=== PATIENT | female | born 1945 | race Caucasian/White ===

== ENCOUNTER 2022-08-07 22:06 | Emergency (ER) | payer OTHER, SELFPAY ==
[2022-08-07 22:13] VITALS: BP 126/68; PULSE 85; RESP 16; TEMP 36.2; O2SAT 96
--- NOTE | 2022-08-07 22:42 | ED.GENADULT ---
HPI - General Adult General Time Seen by Provider: 22:42 Date Seen: 08/07/22 Chief complaint: Unspecified Complaint, Adult Stated complaint: Dizziness, weakness Time Seen by Provider: 08/07/22 22:42 Source: patient, EMS and RN notes reviewed Mode of arrival: EMS Limitations: no limitations History of Present Illness HPI narrative: Vanessa is a 76-year-old female here with her [id number] with concern of dizziness, lightheadedness and spinning sensation. Since about 6:00 a.m. dilan she noted she was feeling dizzy and lightheaded. She went to get up to the bathroom at 1 point and felt like she could not sit up. She felt like she could get her head off the bed but not set up further than that. She describes all 3 symptoms. She is feeling better now. She notes that she has had a couple of nosebleeds over the last month. One was last week. She states the only way she could get it to stop was put a cold washcloth behind her neck. She also relays to me that she has completed physical therapy for her knees and is going to physical therapy for her shoulders. She may have injured her rotator cuffs and she is working on physical therapy for that. When this was happening this evening she felt some chest pressure but not a sharp pain like 1 would have with heart attack per her report. She also felt like somebody was pressing on her abdomen. She notes she had a headache last week. She has had symptoms like this before with lightheadedness and dizziness. When ask her if she is worried about anything, she talks about 2 of her sons. One has some health issues and is not exercising and is getting depressed about that. She also notes 1 is in [place]. Related Data Home Medications Medication Instructions Recorded Confirmed atorvastatin 40 mg tablet mg 08/07/22 levothyroxine 50 mcg tablet mcg 08/07/22 Allergies Allergy/AdvReac Type Severity Reaction Status Date / Time No Known Drug Allergies Allergy Verified 08/07/22 22:18 Review of Systems Status of ROS: Reports: 10 or more systems reviewed and unremarkable except as noted in History and below Exam Const: Vital Signs, click to edit/add: Vital Signs - 24 hr 08/07/22 22:13 08/07/22 23:52 08/08/22 00:00 Temperature 97.2 F L Pulse Rate 84 84 Pulse Rate [Left P ulse Oximeter] 85 Respiratory Rate 16 Blood Pressure Blood Pressure [Ri ght Upper Arm] 126/68 Pulse Oximetry 96 95 94 Oxygen Delivery Me thod Room Air 08/08/22 00:02 Temperature Pulse Rate 82 Pulse Rate [Left P ulse Oximeter] Respiratory Rate Blood Pressure 147/76 H Blood Pressure [Ri ght Upper Arm] Pulse Oximetry 95 Oxygen Delivery Me thod Documenting provider has reviewed patient's vital signs: yes Common normals: no apparent distress, oriented x3, no limitations, healthy appearing, alert and well nourished General appearance: cooperative, comfortable, well kempt and well developed Nutritional appearance: overweight HENMT: Common normals: normocephalic, head/scalp atraumatic and external ears normal Head and scalp: normocephalic and atraumatic External ear: external ears normal Eye: Common normals: PERRL, EOMs intact bilaterally, conjunctivae normal, no scleral icterus and normal visual schofield by confrontation Conjunctiva: conjunctiva(e) normal Pupil: PERRL Other: I cannot exhibit any nystagmus nor cause her to have any symptomatology with movement of her eyes or turning her head. Neck & C-Spine: Common normals: full ROM, no lymphadenopathy, supple, no meningeal signs, no JVD and thyroid normal Thyroid: thyroid normal Chest: Common normals: inspection of chest normal and palpation of chest normal Resp: Common normals: normal respiratory effort, no retractions, no use of accessory muscles and clear to auscultation bilaterally Auscultation: clear to auscultation bilaterally Cardio: Common normals: no JVD, regular rate, regular rhythm, S1 normal heart sound, S2 normal heart sound, no gallops and no murmurs Rate: regular rate Rhythm: regular rhythm Heart sounds: S1 normal and S2 normal GI: Common normals: Normal to inspection, nondistended, normoactive bowel sounds present, soft to palpation, non-tender, no hepatosplenomegaly and no masses Palpation: soft and no hepatosplenomegaly Extremity: Common normals: no calf tenderness and no pedal edema Neuro: Bianca Coma Scale: document GCS findings [place] coma scale eye opening: Spontaneous (4) [place] coma scale verbal response: Orientated (5) Bianca coma scale motor response: Obey commands (6) Bianca coma scale total score: 15 Common normals: oriented x3, CN's II-XII intact bilaterally, moves all extremities, no focal motor deficits and no sensory deficits noted Sensorium/orientation: alert Meningeal signs: no meningeal signs Speech: speech normal Psych: Appearance: well kempt Course Course Hospital Course: Patient has a conglomeration of symptoms. The spinning certainly could be vertigo but has resolved. She also had this in conjunction with lightheadedness and dizziness. She also complained of some chest pressure and abdominal pressure with this. We will have her on cardiac monitoring and pulse oximetry. She has not been given any medicines from EMS to franck any of her symptoms. Will proceed with full complement of labs. I will do portable chest x-ray, noncontrast head CT. It is difficult to tile the symptomatology together with 1 true dual diagnosis. Will see what we get on the ordered imaging and the lab results and see if we need to do any further investigating. Reevaluation(s) Reevaluation #1: Nursing staff reported to me that patient just walk to the bathroom and on was back to baseline, no dizziness, no spinning, no lightheadedness. Time: 23:53 Reevaluation #2: Have reviewed with patient and relative that the workup is negative. She is feeling better. We did discuss vertigo. They feel comfortable going home. They are going to have her sleep on the main level and not have her go down stairs where her bedroom is. Time: 00:44 Vital Signs Vital signs: Initial Vital Signs Temperature 97.2 F L 08/07/22 22:13 Temperature Source Temporal Artery Scan 08/07/22 22:13 Pulse Rate 85 08/07/22 22:13 Pulse Rhythm 08/07/22 22:13 Respiratory Rate 16 08/07/22 22:13 Blood Pressure 126/68 08/07/22 22:13 Blood Pressure Mean 87 08/07/22 22:13 Blood Pressure Position Semi-Fowlers 08/07/22 22:13 Pulse Oximetry 96 08/07/22 22:13 Oxygen Delivery Method 08/07/22 22:13 Vital Signs Temperature 97.2 F L 08/07/22 22:13 Pulse Rate 85 08/07/22 22:13 Respiratory Rate 16 08/07/22 22:13 Blood Pressure 126/68 08/07/22 22:13 Pulse Oximetry 96 08/07/22 22:13 Oxygen Delivery Method 08/07/22 22:13 Temperature 97.2 F L 08/07/22 22:13 Pulse Rate 82 08/08/22 00:02 Respiratory Rate 16 08/07/22 22:13 Blood Pressure 147/76 H 08/08/22 00:02 Pulse Oximetry 95 08/08/22 00:02 Oxygen Delivery Method 08/07/22 22:13 Medical Decision Making Medical Records Medical records reviewed: Yes I reviewed the patient's medical records Medical records narrative: OBSTETRIC AND GYNECOLOGIC HISTORY: Para 4, with 4 vaginal deliveries No menses since total abdominal hysterectomy in 1987 No history of abnormal Pap No history of STI She is not sexually active PAST MEDICAL HISTORY: History of glaucoma History of cataracts Hypothyroidism High cholesterol PAST SURGICAL HISTORY: Tonsillectomy in 1955 Total abdominal hysterectomy, ovary spared, 1987 Glaucoma surgery 2007 Rectocele repair with either cystocele repair or bladder sling in 2008 Excision of cyst on right foot in 2011 Colonoscopy 2012, 2018 Right bunionectomy 2015 Left bunionectomy 2016 Bilateral ocular implants in 2017 Laparoscopic right hemicolectomy with Dr. Moscoso 2018 FAMILY HISTORY: Father with heart disease, stroke, hypertension, high cholesterol SOCIAL HISTORY: She is retired She has a high school education She exercises by doing water aerobics twice a week She does not smoke She does not drink alcohol She does not use recreational drugs Lab Data Lab results reviewed: Yes I reviewed the patient's lab results Labs: Lab Results 08/07/22 08/07/22 08/07/22 Range/Units 22:53 23:15 23:15 WBC 10.23 (4.50-11.00) K/uL RBC 4.69 (4.00-5.20) m/uL Hgb 14.3 (12.0-16.0) gm/dL Hct 43.6 (33.0-51.0) % MCV 93 (80-100) fL MCH 31 (26-34) pg MCHC 33 (32-36) gm/dL RDW Coeff of Isidro 12.6 (11.5-15.5) % Plt Count 294 (140-440) K/uL Neut % (Auto) 76.1 H (42.0-72.0) % Lymph % (Auto) 12.1 L (20-44) % Grady % (Auto) 10.8 (0.0-11.0) % Eos % (Auto) 0.6 (0.0-7.0) % Baso % (Auto) 0.3 (0.0-3.0) % Neut # (Auto) 7.80 H (1.7-7.0) K/uL Lymph # (Auto) 1.20 (0.90-2.90) K/uL Grady # (Auto) 1.10 H (0.00-0.90) K/UL Eos # (Auto) 0.06 (0.00-0.50) K/uL Baso # (Auto) 0.03 (0.00-0.30) K/uL Sodium 139 (135-149) mmol/L Potassium 4.3 (3.6-5.1) mmol/L Chloride 108 (96-114) mmol/L Carbon Dioxide 27 (20-32) mmol/L BUN 32 H (7-30) mg/dL Creatinine 0.9 (0.5-1.5) mg/dL Estimated GFR 65 ml/min Glucose 128 H (60-115) mg/dL Lactate (0.5-1.9) mmol/L Calcium 9.1 (8.4-10.6) mg/dL Magnesium 2.0 (1.5-2.6) mg/dL Total Bilirubin 1.0 (0.1-1.5) mg/dL AST 23 (12-35) U/L ALT 22 (4-35) U/L Alkaline Phosphatase 59 (40-150) U/L NT-Pro-B Natriuret Pep 98 pg/mL Total Protein 7.6 (6.0-8.3) g/dL Albumin 4.1 (3.3-5.0) g/dL SARS-CoV-2 (PCR) (Negative) Influenza Type A (PCR) (Negative) Influenza Type B (PCR) (Negative) RSV (PCR) (Negative) POC Troponin I 0.00 L (0.01-0.04) ng/ml 08/07/22 08/07/22 Range/Units 23:15 23:15 WBC (4.50-11.00) K/uL RBC (4.00-5.20) m/uL Hgb (12.0-16.0) gm/dL Hct (33.0-51.0) % MCV (80-100) fL MCH (26-34) pg MCHC (32-36) gm/dL RDW Coeff of Isidro (11.5-15.5) % Plt Count (140-440) K/uL Neut % (Auto) (42.0-72.0) % Lymph % (Auto) (20-44) % Grady % (Auto) (0.0-11.0) % Eos % (Auto) (0.0-7.0) % Baso % (Auto) (0.0-3.0) % Neut # (Auto) (1.7-7.0) K/uL Lymph # (Auto) (0.90-2.90) K/uL Grady # (Auto) (0.00-0.90) K/UL Eos # (Auto) (0.00-0.50) K/uL Baso # (Auto) (0.00-0.30) K/uL Sodium (135-149) mmol/L Potassium (3.6-5.1) mmol/L Chloride (96-114) mmol/L Carbon Dioxide (20-32) mmol/L BUN (7-30) mg/dL Creatinine (0.5-1.5) mg/dL Estimated GFR ml/min Glucose (60-115) mg/dL Lactate 1.5 (0.5-1.9) mmol/L Calcium (8.4-10.6) mg/dL Magnesium (1.5-2.6) mg/dL Total Bilirubin (0.1-1.5) mg/dL AST (12-35) U/L ALT (4-35) U/L Alkaline Phosphatase (40-150) U/L NT-Pro-B Natriuret Pep pg/mL Total Protein (6.0-8.3) g/dL Albumin (3.3-5.0) g/dL SARS-CoV-2 (PCR) Negative SARS-CoV-2 (Negative) Influenza Type A (PCR) Negative PCR FLU A (Negative) Influenza Type B (PCR) Negative PCR FLU B (Negative) RSV (PCR) Negative PCR RSV (Negative) POC Troponin I (0.01-0.04) ng/ml Imaging Data Chest x-ray: Attestation: I have reviewed the pertinent imaging results. My impression: I do not appreciate any acute pathology of her portable chest x-ray my preliminary review. Radiologist's impression: Patient: VANESSA TERAN COURTENAY Facility:?[facility] Patient ID:?[id number] Site Patient ID:?[id number]. Site :?[id number] Study:?XRay Chest -08/07/2022 11:32:43 PM Ordering Physician:Travis Lee Final Report: Indication: Chest pressure Technique: Chest 1 view Comparison: None Findings/Impression: Cardiovascular and mediastinum: Heart size and vasculature are normal in caliber and appearance. Mediastinum is within normal limits. Lungs and pleural space: Lungs are clear. No sign of infiltrate or mass. No sign of pleural effusion. No pneumothorax. Bones and soft tissues: No significant findings. Dictated by Fransisca Roberson MD @ 08/08/2022 12:04:24 AM (Electronic Signature) CT scan - head: Attestation: I have reviewed the pertinent imaging results. Radiologist's impression: Patient: [facility] Facility:?[facility] Patient ID:?[id number] Site Patient ID:?[id number]. Site :?[id number] Study:?CT Head -08/07/2022 11:36:49 PM Ordering Physician:?Walter Lee Final Report: INDICATION: Dizziness. TECHNIQUE: CT Head without contrast. COMPARISON: None. FINDINGS: CSF spaces: Within normal limits for age. Brain parenchyma: The matthews-white differentiation is normal. No sign of mass, hemorrhage, or midline shift. Skull base and calvarium: Minor mucosal thickening retained mucus in the right maxillary sinus. Mastoid air cells are clear. The visualized orbits are grossly unremarkable. No skull fractures. . IMPRESSION: Unremarkable noncontrast head CT. Please note that all CT scans at this facility use dose modulation, iterative reconstruction, and/or weight-based dosing when appropriate to reduce radiation dose to as low as reasonably achievable. Dictated by Dionte Hylton MD @ 08/08/2022 12:19:12 AM (Electronic Signature) ECG Data Attestation: I personally reviewed and interpreted this ECG as follows: (Sinus rhythm, 80 beats per minute. Nonspecific T-wave changes. QT corrected 410 milliseconds. This is my review this EKG.) Prior ECG tracings: not available for review Critical Care Time Critical Care Time Critical Care Time: No Discharge Plan Discharge Clinical Impression: Dizziness Patient Disposition: Home, Self-Care Condition: Stable Instructions: Vertigo (ED), Lightheadedness (ED), Dizziness (ED) Additional Instructions: If you have return of symptoms or have new concerns, please seek re-evaluation. Otherwise, recommend follow-up with your primary care provider with in the next week. If you have brief limited episodes of spinning, this could be peripheral vertigo. Activity Level: Activity as Tolerated Prescriptions: No Action atorvastatin 40 mg tablet Label Comments: TAKE 1 TABLET BY MOUTH AT BEDTIME levothyroxine 50 mcg tablet Stand Alone Forms: ROKTth Info Instructions
--- NOTE | 2022-08-07 22:52 | CRLHL7_ITS ---
For Patients: As a result of the Century Cures Act, medical imaging exams and procedure reports are released immediately into your electronic medical record. You may view this report before your referring provider. If you have questions, please contact your health care provider. INDICATION: Dizziness. TECHNIQUE: CT Head without contrast. COMPARISON: None. FINDINGS: CSF spaces: Within normal limits for age. Brain parenchyma: The matthews-white differentiation is normal. No sign of mass, hemorrhage, or midline shift. Skull base and calvarium: Minor mucosal thickening retained mucus in the right maxillary sinus. Mastoid air cells are clear. The visualized orbits are grossly unremarkable. No skull fractures. . IMPRESSION: Unremarkable noncontrast head CT. Please note that all CT scans at this facility use dose modulation, iterative reconstruction, and/or weight-based dosing when appropriate to reduce radiation dose to as low as reasonably achievable. Dictated by Dionte Hylton MD @ 08/08/2022 12:19:12 AM (Electronically Signed)
--- NOTE | 2022-08-07 22:52 | CRLHL7_ITS ---
For Patients: As a result of the Century Cures Act, medical imaging exams and procedure reports are released immediately into your electronic medical record. You may view this report before your referring provider. If you have questions, please contact your health care provider. Indication: Chest pressure Technique: Chest 1 view Comparison: None Findings/Impression: Cardiovascular and mediastinum: Heart size and vasculature are normal in caliber and appearance. Mediastinum is within normal limits. Lungs and pleural space: Lungs are clear. No sign of infiltrate or mass. No sign of pleural effusion. No pneumothorax. Bones and soft tissues: No significant findings. Dictated by Fransisca Roberson MD @ 08/08/2022 12:04:24 AM (Electronically Signed)
[2022-08-07 23:18] LABS: Lactate* 1.5 mmol/L (0.5-1.9)
[2022-08-07 23:21] LABS: Basophils Absolute Auto 0.03 K/uL (0.00-0.30); Basophils Percent Auto 0.3 % (0.0-3.0); Eosinophils Absolute Auto 0.06 K/uL (0.00-0.50); Eosinophils Percent Auto 0.6 % (0.0-7.0); Hematocrit 43.6 % (33.0-51.0); Hemoglobin* 14.3 gm/dL (12.0-16.0); Immature Granulocytes Abs Auto 0.01 K/uL (0.00-0.30); Immature Granulocytes Pct Auto 0.1 %; Lymphocytes Percent Auto 12.1 % (20-44); Mean Corpuscular HGB Conc 33 gm/dL (32-36); Mean Corpuscular Hemoglobin 31 pg (26-34); Mean Corpuscular Volume 93 fL (80-100); Monocytes Percent Auto 10.8 % (0.0-11.0); Neutrophils Percent Auto 76.1 % (42.0-72.0); Platelet Count* 294 K/uL (140-440); RDW Coefficient of Variation % 12.6 % (11.5-15.5); Red Blood Count 4.69 m/uL (4.00-5.20); White Blood Count* 10.23 K/uL (4.50-11.00)
[2022-08-07 23:26] LABS: Slide Review Reflex No
[2022-08-07 23:35] LABS: Albumin* 4.1 g/dL (3.3-5.0); Chloride* 108 mmol/L (96-114); Sodium* 139 mmol/L (135-149)
[2022-08-07 23:37] LABS: Creatinine* 0.9 mg/dL (0.5-1.5); Estimated Glomerular Filt Rate 65 ml/min
[2022-08-07 23:38] LABS: Alanine Aminotransferase* 22 U/L (4-35); Alkaline Phosphatase* 59 U/L (40-150); Blood Urea Nitrogen* 32 mg/dL (7-30); Calcium* 9.1 mg/dL (8.4-10.6); Carbon Dioxide* 27 mmol/L (20-32); Glucose* 128 mg/dL (60-115); Total Protein* 7.6 g/dL (6.0-8.3)
[2022-08-07 23:48] LABS: NT Pro B Type NatriureticPept* 98 pg/mL
[2022-08-07 23:52] VITALS: PULSE 84; O2SAT 95
[2022-08-08] VITALS (8 sets, daily range): BP systolic 141–147; BP diastolic 69–76; PULSE 79–84; O2SAT 94–97
[2022-08-08 00:04] LABS: PCR FLU A Negative PCR FLU A (Negative); PCR FLU B Negative PCR FLU B (Negative); PCR RSV Negative PCR RSV (Negative); SARS PCR* Negative SARS-CoV-2 (Negative)
[2022-08-08 00:16] LABS: Aspartate Amino Transferase* 23 U/L (12-35); Potassium* 4.3 mmol/L (3.6-5.1)
== END 2022-08-08 01:04 | disposition home or self-care (01) ==
PROVIDERS: Emergency Provider Family Medicine; PCP Family Medicine
DX: R42 Dizziness and giddiness (principal)
CPT/HCPCS: 36415; 70450; 71045; 80053; 83605; 83735; 83880; 84484; 85025; 87502; 87634; 87635; 93005; 94761; 99284; 99285

== ENCOUNTER 2023-01-15 08:14 | Emergency (ER) | payer OTHER, SELFPAY ==
[2023-01-15 08:19] VITALS: BP 153/82; PULSE 76; RESP 16; TEMP 36.8; O2SAT 97; BMI 35.2
--- NOTE | 2023-01-15 08:44 | CRLHL7_ITS ---
For Patients: As a result of the Century Cures Act, medical imaging exams and procedure reports are released immediately into your electronic medical record. You may view this report before your referring provider. If you have questions, please contact your health care provider. INDICATION: Lightheadedness. TECHNIQUE: Two-view chest. COMPARISON: PA chest August 07, 2022. FINDINGS: Clear lungs. Normal heart size and pulmonary vascularity. Thoracolumbar scoliosis. IMPRESSION: No acute cardiopulmonary process identified. No significant change other than technique. Dictated by Emmanuel Tyler MD @ 01/15/2023 9:05:05 AM (Electronically Signed)
--- NOTE | 2023-01-15 08:45 | ED.GENADULT ---
HPI - General Adult General Time Seen by Provider: 08:45 Date Seen: 01/15/23 Chief complaint: Hypertension Stated complaint: elevated bp, pulse,dizziness Time Seen by Provider: 01/15/23 08:17 Source: patient Mode of arrival: ambulatory Limitations: no limitations History of Present Illness HPI narrative: Patient is a 77-year-old female with a history of hypertension, hyperlipidemia and hypothyroidism presenting to the emergency department for lightheadedness/dizziness and hypertension. Patient states last night she was feeling very lightheaded and dizzy. She states there episodes when she felt like she was going to pass out. She denies ever losing consciousness or falling. She was also having some shortness of breath and chest pressure. She states the shortness of breath and chest pressure have resolved but she is still isn't feeling back to normal this morning. She still having some lightheadedness and dizziness. Patient states she is not feeling dizzy while laying in the hospital bed at this time but she does feel fatigued. She admits to intermittent abdominal pain, headache and vision changes but states most of these are chronic issues and not any different from her baseline. Denies dysuria, diarrhea, constipation, numbness. Patient does state she chronically has issues with dizziness and lightheadedness but states he has passed a days has been worse. She admits she does not drink enough water. She also states she has noted blood pressures been higher than average with at home it was 160/80 Related Data Home Medications Medication Instructions Recorded Confirmed atorvastatin 40 mg tablet 40 mg 08/07/22 levothyroxine 50 mcg tablet 50 mcg 08/07/22 Allergies Allergy/AdvReac Type Severity Reaction Status Date / Time No Known Drug Allergies Allergy Verified 08/07/22 22:18 Review of Systems Status of ROS: Reports: 10 or more systems reviewed and unremarkable except as noted in History and below PFSH PFSH Social History Smoking Status: Never smoker Do you use any of these nicotine containing products: None Second hand tobacco smoke exposure: No How often do you have a drink containing alcohol: monthly or less How many standard drinks containing alcohol do you have on a typical day: 1 or 2 How often do you have six or more drinks on one occasion: Never AUDIT-C Alcohol total score: 1 Non-prescribed substance use: denies use Exam Narrative: Exam Narrative: Const: Well-nourished, Well-developed, in mild distress Eyes: PERRL, no conjunctival injection, and symmetrical lids ENMT: Atraumatic external nose and ears. Moist mucous membranes. Neck: Symmetric, trachea midline, No thyromegaly. CVS: RRR, No murmurs or gallops. Peripheral pulses 2+ and equal in all extremities RESP: Unlabored respiratory effort. Clear to auscultation bilaterally. GI: Nontender/Nondistended, No rebound or guarding. MSK:Extremities w/o deformity, Normal Active ROM Skin: Warm, Dry. No rashes or lesions. Neuro: Normal Muscle tone, No focal neurological deficits. Psych: Awake, Alert, & Oriented x3. Appropriate mood and affect. Const: Vital Signs, click to edit/add: Vital Signs - 24 hr 01/15/23 08:19 01/15/23 10:40 Temperature 98.2 F Pulse Rate [Right Pulse Oximeter] 76 62 Respiratory Rate 16 14 Blood Pressure [Ri ght Forearm] 153/82 H 175/71 H Pulse Oximetry 97 97 Oxygen Delivery Me thod Room Air Room Air Course Vital Signs Vital signs: Initial Vital Signs Temperature 98.2 F 01/15/23 08:19 Temperature Source Temporal Artery Scan 01/15/23 08:19 Pulse Rate 76 01/15/23 08:19 Respiratory Rate 16 01/15/23 08:19 Blood Pressure 153/82 H 01/15/23 08:19 Blood Pressure Mean 105 01/15/23 08:19 Blood Pressure Position Sitting 01/15/23 08:19 Pulse Oximetry 97 01/15/23 08:19 Oxygen Delivery Method Room Air 01/15/23 08:19 Vital Signs Temperature 98.2 F 01/15/23 08:19 Pulse Rate 76 01/15/23 08:19 Respiratory Rate 16 01/15/23 08:19 Blood Pressure 153/82 H 01/15/23 08:19 Pulse Oximetry 97 01/15/23 08:19 Oxygen Delivery Method Room Air 01/15/23 08:19 Temperature 98.2 F 01/15/23 08:19 Pulse Rate 62 01/15/23 10:40 Respiratory Rate 14 01/15/23 10:40 Blood Pressure 175/71 H 01/15/23 10:40 Pulse Oximetry 97 01/15/23 10:40 Oxygen Delivery Method Room Air 01/15/23 10:40 Medical Decision Making MDM Narrative Medical decision making narrative: Patient is a 77-year-old female presenting emergency department for fatigue. She was having chest pressure and shortness of breath yesterday that has since resolved. She was having some dizziness lightheadedness also there is also resolved. Today she just feels fatigued. She states that has this dizziness is a chronic issue that was worse over the past couple days. She admits to not drinking enough fluids. She has never seen a project manager process development. With any symptoms we will do a cardiac workup to include CBC, CMP, troponin, urinalysis, chest x-ray, EKG. She was given a L of normal saline and New line patient's EKG showed no concerning abnormalities at this time. Chest x-ray does not show any concerning abnormalities either. Patient's lab results and normal limits be we did give her a L of fluids. She was able walk to the bathroom without issue. She states she still feels tired. But her vital signs are stable and she looks to be doing otherwise well. Unlikely to be cardiac in nature with a normal troponin since the symptoms started a couple days ago with the chest pressure starting yesterday. I would expected this to be elevated. I spoke to the patient upon the primary care provider and told her that she should eventually see a project manager process development. They are agreeable with this plan Differential Diagnosis Differential Diagnosis: ACS, electrolyte abnormality, viral syndrome, UTI Lab Data Labs: Lab Results 01/15/23 01/15/23 Range/Units 09:00 09:13 WBC 6.01 (4.50-11.00) K/uL RBC 5.13 (4.00-5.20) m/uL Hgb 15.1 (12.0-16.0) gm/dL Hct 47.4 (33.0-51.0) % MCV 92 (80-100) fL MCH 29 (26-34) pg MCHC 32 (32-36) gm/dL RDW Coeff of Isidro 12.9 (11.5-15.5) % Plt Count 296 (140-440) K/uL Neut % (Auto) 55.5 (42.0-72.0) % Lymph % (Auto) 29.0 (20-44) % Ford % (Auto) 13.3 H (0.0-11.0) % Eos % (Auto) 1.5 (0.0-7.0) % Baso % (Auto) 0.7 (0.0-3.0) % Neut # (Auto) 3.34 (1.7-7.0) K/uL Lymph # (Auto) 1.74 (0.90-2.90) K/uL Ford # (Auto) 0.80 (0.00-0.90) K/UL Eos # (Auto) 0.09 (0.00-0.50) K/uL Baso # (Auto) 0.04 (0.00-0.30) K/uL Abs Immat Gran (auto) 0.00 (0.00-0.30) K/uL Imm/Tot Granulo (auto) 0.0 % Sodium 140 (135-149) mmol/L Potassium 3.9 (3.6-5.1) mmol/L Chloride 103 (96-114) mmol/L Carbon Dioxide 28 (20-32) mmol/L BUN 29 (7-30) mg/dL Creatinine 0.9 (0.5-1.5) mg/dL Estimated Creat Clear 32.77 Estimated GFR 65 ml/min Glucose 99 (60-115) mg/dL Calcium 9.6 (8.4-10.6) mg/dL Total Bilirubin 0.5 (0.1-1.5) mg/dL AST 24 (12-35) U/L ALT 19 (4-35) U/L Alkaline Phosphatase 66 (40-150) U/L Troponin I < 0.01 L (0.01-0.04) ng/mL Total Protein 7.9 (6.0-8.3) g/dL Albumin 4.4 (3.3-5.0) g/dL Urine Color Yellow (Yellow) Urine Appearance Clear (Clear) Urine pH 6.5 (5.0-8.5) Ur Specific [place] 1.010 (1.000-1.030) Urine Protein Negative (Negative) Urine Glucose (UA) Negative (Negative) Urine Ketones Negative (Negative) Urine Blood Negative (Negative) Urine Nitrite Negative (Negative) Urine Bilirubin Negative (Negative) Urine Urobilinogen 0.2 (0.2-1.0) Ur Leukocyte Esterase 1+ A (Negative) Urine RBC 0-2 (0-2) Urine WBC 10-25 A (0-5) Ur Squamous Epith Cells Few (None-Few) Urine Bacteria None (None) ECG Data Attestation: I personally reviewed and interpreted this ECG as follows: (Normal sinus rhythm, normal intervals, normal axis, no ST abnormalities. There are T-wave inversions in lead 3 seen on previous EKG in August of this year) Prior ECG tracings: available for review Discharge Plan Discharge Clinical Impression: Fatigue Qualifiers: Fatigue type: unspecified Qualified Code(s): R53.83 - Other fatigue Patient Disposition: Home, Self-Care Condition: Stable Instructions: Fatigue (ED) Additional Instructions: Follow-up with the primary care provider. Speak to your primary care provider about being referred to a smoke and flame specialist. Return to the emergency department for new or worsening symptoms. Your blood pressure is slightly elevated this time but this is not a concern at this time but do recommend you speak to your primary care provider of bowel if they want to further optimize your medication. Prescriptions: No Action atorvastatin 40 mg tablet 40 mg Patient Comments: TAKE 1 TABLET BY MOUTH AT BEDTIME levothyroxine 50 mcg tablet 50 mcg Follow Up/Referrals: Molina Guerrero MD [Primary Care Provider] - Stand Alone Forms: [facility] Info Instructions
[2023-01-15] MEDS: LACTATED RINGERS 1000 ML IV (08:50)
[2023-01-15 09:12] LABS: Basophils Absolute Auto 0.04 K/uL (0.00-0.30); Basophils Percent Auto 0.7 % (0.0-3.0); Eosinophils Absolute Auto 0.09 K/uL (0.00-0.50); Eosinophils Percent Auto 1.5 % (0.0-7.0); Hematocrit 47.4 % (33.0-51.0); Hemoglobin* 15.1 gm/dL (12.0-16.0); Lymphocytes Absolute Auto 1.74 K/uL (0.90-2.90); Mean Corpuscular HGB Conc 32 gm/dL (32-36); Mean Corpuscular Hemoglobin 29 pg (26-34); Mean Corpuscular Volume 92 fL (80-100); Monocytes Percent Auto 13.3 % (0.0-11.0); Neutrophils Absolute Auto 3.34 K/uL (1.7-7.0); Neutrophils Percent Auto 55.5 % (42.0-72.0); Platelet Count* 296 K/uL (140-440); RDW Coefficient of Variation % 12.9 % (11.5-15.5); Red Blood Count 5.13 m/uL (4.00-5.20); White Blood Count* 6.01 K/uL (4.50-11.00)
[2023-01-15 09:16] LABS: Slide Review Reflex No
[2023-01-15 09:28] LABS: Albumin* 4.4 g/dL (3.3-5.0); Chloride* 103 mmol/L (96-114); Sodium* 140 mmol/L (135-149)
[2023-01-15 09:29] LABS: Potassium* 3.9 mmol/L (3.6-5.1)
[2023-01-15 09:31] LABS: Alanine Aminotransferase* 19 U/L (4-35); Alkaline Phosphatase* 66 U/L (40-150); Aspartate Amino Transferase* 24 U/L (12-35); Bilirubin Total* 0.5 mg/dL (0.1-1.5); Blood Urea Nitrogen* 29 mg/dL (7-30); Carbon Dioxide* 28 mmol/L (20-32); Creatinine* 0.9 mg/dL (0.5-1.5); Est. Creatinine Clearance* 32.77; Estimated Glomerular Filt Rate 65 ml/min; Glucose* 99 mg/dL (60-115); Total Protein* 7.9 g/dL (6.0-8.3)
[2023-01-15 09:32] LABS: Calcium* 9.6 mg/dL (8.4-10.6)
[2023-01-15 09:37] LABS: Appearance Urine Clear (Clear); Bilirubin Urine Negative (Negative); Blood Urine Negative (Negative); Color Urine Yellow (Yellow); Glucose Urine Negative (Negative); Ketones Urine Negative (Negative); Protein Urine Negative (Negative); Urobilinogen Urine 0.2 (0.2-1.0); pH Urine 6.5 (5.0-8.5)
[2023-01-15 09:38] LABS: Leukocyte Esterase Urine 1+ (Negative); Nitrite Urine Negative (Negative); RBC Urine 0-2 (0-2); Squamous Epithelial Cell Urine Few (None-Few)
[2023-01-15 09:43] LABS: Troponin I* < 0.01 ng/mL (0.01-0.04)
[2023-01-15 10:40] VITALS: BP 175/71; PULSE 62; RESP 14; O2SAT 97
== END 2023-01-15 10:56 | disposition home or self-care (01) ==
PROVIDERS: Emergency Provider Student in an Organized Health Care Education/Training Program; PCP Family Medicine
DX: R53.83 Other fatigue (principal)
CPT/HCPCS: 36415; 71046; 80053; 81001; 84484; 85025; 87086; 93005; 99283; 99284; 99285; J7120

== ENCOUNTER 2024-01-29 14:20 | Emergency (ER) | payer OTHER, SELFPAY ==
[2024-01-29 14:24] VITALS: BP 133/76; PULSE 83; RESP 18; TEMP 36.2; O2SAT 96; BMI 35.0
--- NOTE | 2024-01-29 14:46 | ED.GENADULT ---
HPI - General Adult General Chief complaint: Headache/Migraine Stated complaint: headaches, fall a month ago Time Seen by Provider: 01/29/24 14:45 History of Present Illness HPI narrative: 78-year-old female presents to the ER today for headaches. She had a fall down 12 stairs that occurred about a month ago on December 27. She was seen in the [facility] ER and had a workup that was normal. A after that fall, she was told come back to the ER to be rechecked of her headaches worsened. Over the past few days her headaches have changed. They are worse and now have gone from feeling told to feeling sharp. No visual disturbance. No focal weakness or numbness. Were able to get some records from the [facility] ER. According to that record she has a history of hypothyroidism, and high cholesterol. She had lost her balance and fallen down 12-15 steps. Temperature was 36.8?. Blood pressure was 167/89. Pulse 88. O2 94% room air. Workup in the ER included : CT head-no evidence of acute intracranial abnormality. Scalp hematoma at the vertex. No underlying skull fracture. CT C-spine. No acute fracture. CT abdomen/pelvis with IV contrast. No acute traumatic solid visceral or major vascular injury within the chest abdomen pelvis. No acute fractures or traumatic listhesis within the thoracic or lumbar spine. Chronic appearing mild fracture deformity of the right inferior pubic ramus. Cholelithiasis with minimal intrahepatic biliary ductal dilatation. No significant surrounding inflammatory changes on CT. Consider ultrasound if clinically relevant. CT report alludes to other non emergent findings . Full report is not available so these non emergent findings are not available to Dr. Beatty today in the [facility] ER Patient reports that she also had multiple areas of bruising from her fall including or abdomen, her back, her lower extremities, her left hand, and her eye. Her bruises of all been healing and she has generally been doing well. She has had minimal to no headaches for the past couple of weeks. However on Saturday she went to the [facility] clinic and had a CT scan of her skull (in preparation for a cochlear implant surgery) after he got home from the clinic she was at home and checking her computer when she had a fairly abrupt and fairly severe headache. She describes it as ?sharp? but does not mean that it was stabbing or pin like but rather that it was much more intense than usual headaches. She took Tylenol and rested in her headache resolved. She was normal yesterday on Saturday. This morning at about 9:00 a.m. she was home and she had another fairly severe headache that again resolved with Tylenol. She had another headache this afternoon. Her headache on Saturday was in the left frontal/temporal region. Her headache this morning was in the right parietal-occipital region. No other symptoms with her headaches. No blurry vision. No nausea. No confusion. No slurred speech. No facial droop. No numbness or weakness in arms or legs. No gait disturbance. At this point her headaches have now resolved and she is basically feeling back to normal. She declines further pain meds. She says she tried to call her doctor because of the more severe headaches this week and her doctor's office told her to come to the ER. She is not anticoagulated. No known history of aneurysms or vascular disease. Related Data Home Medications ?Medication ?Instructions ?Recorded ?Confirmed levothyroxine 50 mcg tablet 50 mcg PO DAILY 08/07/22 01/29/24 latanoprost 0.005 % eye drops 1 drp ophthalmic (eye) QPM 01/29/24 01/29/24 pravastatin 40 mg tablet 40 mg PO QPM 01/29/24 01/29/24 sertraline 25 mg tablet 25 mg PO QAM 01/29/24 01/29/24 Allergies Allergy/AdvReac Type Severity Reaction Status Date / Time No Known Drug Allergies Allergy Verified 01/29/24 16:34 [facility] Social History Smoking Status: Never smoker Do you use any of these nicotine containing products: None Second hand tobacco smoke exposure: No How often do you have a drink containing alcohol: monthly or less How many standard drinks containing alcohol do you have on a typical day: 1 or 2 How often do you have six or more drinks on one occasion: Never AUDIT-C Alcohol total score: 1 Non-prescribed substance use: denies use Exam Narrative: Exam Narrative: Constitutional: Appears well-developed and well-nourished. Alert. Conversant. Non toxic. HENT: Head: No depressed skull fracture, Raccoon Eyes, Curry's sign, or hemotympanum. Face normal. TMs normal. For previous bruising on her scalp and face is nicely healed.. Nose: Nose normal. Mouth/Throat: Oral mucosa is clear and moist. no trismus. Pharynx normal. Tonsils symmetric. No tonsillar enlargement, erythema, or exudate. Eyes: Conjunctivae normal. EOM normal. Pupils equal, round, and reactive to light. No scleral icterus. Neck: Normal range of motion. Neck supple. No tracheal deviation present. Cardiovascular: Normal rate, regular rhythm. No gallop. No friction rub. No murmur heard. Symmetric radial artery pulses Pulmonary/Chest: Effort normal. No stridor. No respiratory distress. No wheezes. No rales. No rhonchi . No tenderness. Abdominal: Soft.No distension. No mass. No tenderness. No rebound. No guarding. Musculoskeletal: RUE: Normal range of motion. No tenderness. No deformity LUE: Normal range of motion. No tenderness. No deformity RLE: Normal range of motion. No edema. No tenderness. No deformity LLE: Normal range of motion. No edema. No tenderness. No deformity Neurological: Mental status normal. Attention normal. Alert and oriented x3. GCS 15. Memory normal. Speech fluent. Cognition normal. Cranial Nerves intact II-XII except I did not formally test gag or visual acuity. EOMI. Palate elevates symmetrically and tongue protrudes in the midline. Strength: 5/5 trapezius on the right and left 5/5 deltoid on the right and left 5/5 biceps on the right and left 5/5 triceps on the right and left 5/5 account support analyst on the right and left 5/5 thumb opposition on the right and left 5/5 finger abduction on the right and left 5/5 hip flexors (L3) on the right and left 5/5 quadriceps (L4) on the right and left 5/5 tibialis anterior on the right and left 5/5 EHL (L5) on the right and left 5/5 gastrocnemius (S1) on the right and left 5/5 hamstring on the right and left Sensation intact to light touch in both upper extremities (C4-T1) Sensation intact to light touch in Both lower extremities (L4-S1). Finger to nose and coordination normal. Gait normal. Skin: Skin is warm and dry. No rash noted. No pallor. Normal capillary refill. Psychiatric: Normal mood. Normal affect. Const: Vital Signs, click to edit/add: Vital Signs - 24 hr 01/29/24 14:24 01/29/24 16:31 Temperature 97.1 F L Pulse Rate [Pulse Oximeter] 83 68 Respiratory Rate 18 18 Blood Pressure [Ri t Upper Arm] 133/76 149/68 H Pulse Oximetry 96 97 Oxygen Delivery Me thod Room Air Room Air Course Vital Signs Vital signs: Initial Vital Signs Temperature 97.1 F L 01/29/24 14:24 Temperature Source Temporal Artery Scan 01/29/24 14:24 Pulse Rate 83 01/29/24 14:24 Pulse Rhythm Regular 01/29/24 14:24 Pulse Strength 3+ Normal 01/29/24 14:24 Respiratory Rate 18 01/29/24 14:24 Blood Pressure 133/76 01/29/24 14:24 Blood Pressure Mean 95 01/29/24 14:24 Blood Pressure Position Sitting 01/29/24 14:24 Pulse Oximetry 96 01/29/24 14:24 Oxygen Delivery Method Room Air 01/29/24 14:24 Vital Signs Temperature 97.1 F L 01/29/24 14:24 Pulse Rate 83 01/29/24 14:24 Respiratory Rate 18 01/29/24 14:24 Blood Pressure 133/76 01/29/24 14:24 Pulse Oximetry 96 01/29/24 14:24 Oxygen Delivery Method Room Air 01/29/24 14:24 Temperature 97.1 F L 01/29/24 14:24 Pulse Rate 68 01/29/24 16:31 Respiratory Rate 18 01/29/24 16:31 Blood Pressure 149/68 H 01/29/24 16:31 Pulse Oximetry 97 01/29/24 16:31 Oxygen Delivery Method Room Air 01/29/24 16:31 Medical Decision Making MDM Narrative Medical decision making narrative: Very pleasant 78-year-old female presents to the ER today with her son for evaluation of headaches. She had a significant fall down a flight of stairs about a month ago with head injury as well as multiple other bruises. She had CT imaging of her head, neck, chest abdomen pelvis on the day of her injury with no severe injuries found. She had been recovering nicely and then developed headaches a couple of days ago and again today. She was sent in by her primary care provider. Concern here is for possible delayed intracranial hemorrhage or other missed finding on previous CT. We did read obtain repeat head CT which is normal. No evidence for skull fracture or intracranial hemorrhage. Consider nontraumatic causes of headache. She has no fever or neck stiffness or other systemic illness to suggest meningitis or encephalitis. No other recent trauma. The headaches are not always on the same side. There is no evidence for any this singles or other infection of her scalp causing the headaches. Headache is not really behind 1 eye or the other to suggest temporal arteritis. No other visual symptoms. No focal deficits to suggest stroke. With fairly abrupt onset headaches on Saturday and again today consider possible aneurysmal subarachnoid hemorrhage. Head CT negative for subarachnoid. CT today was obtained within about 6 hours of onset of today's headache and therefore should be no 100% sensitive to rule out subarachnoid. CT angiogram shows no evidence for aneurysmal disease. Headaches could potentially be a post concussive syndrome. Son thinks they may be related to stress. She is also in the process of being worked up for a cochlear implant and has other stressors. Incidentally CTA does show mild right carotid stenosis. Discussed with the patient and her son. Recommended primary care follow-up and risk factor optimization. No need for vascular surgery with less than 50% stenosis and no stroke symptoms at this time. Precautions for return to the ER reviewed. Questions answered. Lab Data Labs: Lab Results 01/29/24 01/29/24 Range/Units 15:13 15:23 WBC 6.90 (4.50-11.00) K/uL RBC 4.63 (4.00-5.20) m/uL Hgb 13.9 (12.0-16.0) gm/dL Hct 43.6 (33.0-51.0) % MCV 94 (80-100) fL MCH 30 (26-34) pg MCHC 32 (32-36) gm/dL RDW Coeff of Isidro 13.0 (11.5-15.5) % Plt Count 243 (140-440) K/uL Neut % (Auto) 50.4 (42.0-72.0) % Lymph % (Auto) 33.2 (20-44) % Swisher % (Auto) 13.5 H (0.0-11.0) % Eos % (Auto) 2.2 (0.0-7.0) % Baso % (Auto) 0.6 (0.0-3.0) % Neut # (Auto) 3.48 (1.7-7.0) K/uL Lymph # (Auto) 2.29 (0.90-2.90) K/uL Swisher # (Auto) 0.90 (0.00-0.90) K/UL Eos # (Auto) 0.15 (0.00-0.50) K/uL Baso # (Auto) 0.04 (0.00-0.30) K/uL Abs Immat Gran (auto) 0.01 (0.00-0.30) K/uL Imm/Tot Granulo (auto) 0.1 % Sodium 139 (135-149) mmol/L Potassium 4.0 (3.6-5.1) mmol/L Chloride 106 (96-114) mmol/L Carbon Dioxide 25 (20-32) mmol/L Anion Gap 8 (7-15) mEq/L BUN 35 H (7-30) mg/dL Creatinine 0.9 (0.5-1.5) mg/dL Estimated Creat Clear 32.23 Estimated GFR 65 ml/min Glucose 92 (60-115) mg/dL Calcium 9.5 (8.4-10.6) mg/dL POC Creatinine 1.1 (0.6-1.3) mg/dl Imaging Data CT scan - head: Attestation: I have reviewed the pertinent imaging results. Radiologist's impression: IMPRESSION: No acute intracranial hemorrhage or mass effect. CTA head: Radiologist's impression: Preliminary Report: No proximal large vessel occlusion or intracranial aneurysm. Mild (less than 50 percent) proximal right cervical internal carotid artery stenosis. Read by:?Alexi Hirsch MD @01/29/2024 4:58:38 PM CTA Neck: Attestation: I have reviewed the pertinent imaging results. Radiologist's impression: Preliminary Report: No proximal large vessel occlusion or intracranial aneurysm. Mild (less than 50 percent) proximal right cervical internal carotid artery stenosis. Read by:?Alexi Hirsch MD @01/29/2024 4:58:38 PM Discharge Plan Discharge Clinical Impression: Headache Patient Disposition: Home, Self-Care Condition: Stable Instructions: Acute Headache (DC) Additional Instructions: As we discussed, so far the workup for your headache looks reassuring. If you have worsening headache or any other symptoms, please come back to the ER right away to be rechecked. Your scan of the arteries in her neck does show mild atherosclerosis (cholesterol plaques) in your right carotid artery. Please be sure to follow-up with your doctor to make sure your blood pressure, cholesterol, and other cardiovascular risk factors are under good control. Prescriptions: No Action levothyroxine 50 mcg tablet 50 mcg PO DAILY latanoprost 0.005 % drops 1 drp ophthalmic (eye) QPM pravastatin 40 mg tablet 40 mg PO QPM sertraline 25 mg tablet 25 mg PO QAM Follow Up/Referrals: Molina Guerrero MD [Primary Care Provider] - Stand Alone Forms: [facility] Info Instructions
--- NOTE | 2024-01-29 15:13 | CRLHL7_ITS ---
For Patients: As a result of the Century Cures Act, medical imaging exams and procedure reports are released immediately into your electronic medical record. You may view this report before your referring provider. If you have questions, please contact your health care provider. INDICATION: Abrupt headache, right parietooccipital pain, recent fall. TECHNIQUE: CTA neck with contrast bolus tracking, 3D angiographic rendering using maximum intensity projection (MIP) and images permanently archived. FINDINGS: There is carotid atherosclerosis. There is a mild stenosis of the proximal right ICA, less than 50% by NASCET. There is no significant left carotid artery stenosis or dissection. There is no significant vertebral artery stenosis or dissection. The soft tissues of the neck are within normal limits. The cervical spine is in normal alignment. Degenerative changes are noted in the cervical spine. IMPRESSION: Mild stenosis of the proximal right ICA, less than 50% by NASCET. Please note that all CT scans at this facility use dose modulation, iterative reconstruction, and/or weight-based dosing when appropriate to reduce radiation dose to as low as reasonably achievable. Dictated by Geovani Hendricks MD @ 01/29/2024 11:27:18 PM (Electronically Signed)
--- NOTE | 2024-01-29 15:14 | CRLHL7_ITS ---
For Patients: As a result of the Century Cures Act, medical imaging exams and procedure reports are released immediately into your electronic medical record. You may view this report before your referring provider. If you have questions, please contact your health care provider. INDICATION: Abrupt headache, right parietooccipital pain, recent fall. TECHNIQUE: CTA head with contrast bolus tracking, 3D angiographic rendering using maximum intensity projection (MIP) and images permanently archived. FINDINGS: There is scattered intracranial atherosclerotic disease. There is normal opacification of the intracranial vasculature. There is no large vessel occlusion. No aneurysm is identified. IMPRESSION: No acute intracranial abnormality at CTA. Please note that all CT scans at this facility use dose modulation, iterative reconstruction, and/or weight-based dosing when appropriate to reduce radiation dose to as low as reasonably achievable. Dictated by Geovani Hendricks MD @ 01/29/2024 11:25:42 PM (Electronically Signed)
--- NOTE | 2024-01-29 15:14 | CRLHL7_ITS ---
For Patients: As a result of the Century Cures Act, medical imaging exams and procedure reports are released immediately into your electronic medical record. You may view this report before your referring provider. If you have questions, please contact your health care provider. INDICATION: Abrupt headache. TECHNIQUE: Noncontrast CT images of the brain. COMPARISON: CT brain 08/07/2022. FINDINGS: Mild diffuse cerebral volume loss. No mass effect or midline shift. The matthews-white differentiation is maintained. No acute intracranial hemorrhage or pathologic extra-axial fluid collection. Intracranial atherosclerotic calcifications. Thinning of the ocular lenses. The calvarium is intact. The visualized paranasal sinuses and mastoid air cells are clear. IMPRESSION: No acute intracranial hemorrhage or mass effect. Please note that all CT scans at this facility use dose modulation, iterative reconstruction, and/or weight-based dosing when appropriate to reduce radiation dose to as low as reasonably achievable. Dictated by Alexi Hirsch MD @ 01/29/2024 4:54:59 PM (Electronically Signed)
[2024-01-29 15:31] LABS: Basophils Absolute Auto 0.04 K/uL (0.00-0.30); Basophils Percent Auto 0.6 % (0.0-3.0); Eosinophils Absolute Auto 0.15 K/uL (0.00-0.50); Eosinophils Percent Auto 2.2 % (0.0-7.0); Hematocrit 43.6 % (33.0-51.0); Hemoglobin* 13.9 gm/dL (12.0-16.0); Immature Granulocytes Abs Auto 0.01 K/uL (0.00-0.30); Immature Granulocytes Pct Auto 0.1 %; Lymphocytes Absolute Auto 2.29 K/uL (0.90-2.90); Lymphocytes Percent Auto 33.2 % (20-44); Mean Corpuscular HGB Conc 32 gm/dL (32-36); Mean Corpuscular Hemoglobin 30 pg (26-34); Mean Corpuscular Volume 94 fL (80-100); Monocytes Percent Auto 13.5 % (0.0-11.0); Neutrophils Absolute Auto 3.48 K/uL (1.7-7.0); Neutrophils Percent Auto 50.4 % (42.0-72.0); Platelet Count* 243 K/uL (140-440); Red Blood Count 4.63 m/uL (4.00-5.20)
[2024-01-29 15:32] LABS: Creatinine, Point-of-Care* 1.1 mg/dl (0.6-1.3)
[2024-01-29 15:37] LABS: Slide Review Reflex No
[2024-01-29 15:43] LABS: Chloride* 106 mmol/L (96-114); Sodium* 139 mmol/L (135-149)
[2024-01-29 15:46] LABS: Anion Gap 8 mEq/L (7-15); Blood Urea Nitrogen* 35 mg/dL (7-30); Carbon Dioxide* 25 mmol/L (20-32); Creatinine* 0.9 mg/dL (0.5-1.5); Est. Creatinine Clearance* 32.23; Estimated Glomerular Filt Rate 65 ml/min
[2024-01-29 15:47] LABS: Calcium* 9.5 mg/dL (8.4-10.6); Glucose* 92 mg/dL (60-115)
[2024-01-29 16:31] VITALS: BP 149/68; PULSE 68; RESP 18; O2SAT 97
== END 2024-01-29 18:16 | disposition home or self-care (01) ==
PROVIDERS: Emergency Provider Emergency Medicine; PCP Family Medicine
DX: R51.9 Headache, unspecified (principal)
CPT/HCPCS: 36415; 70450; 70496; 70498; 80048; 82565; 85025; 99283; 99284; Q9967